=== PATIENT | male | born 1965 | race Caucasian/White ===

== ENCOUNTER 2022-10-23 20:09 | Inpatient (IN) | payer BC, SELFPAY ==
[2022-10-23] MEDS ORDERED: NA CHLORIDE 0.9% 1,000 ML ONE (20:46)
[2022-10-23] MEDS ORDERED: ACETAMINOPHEN 500 MG TAB ONE (20:46)
[2022-10-23] MEDS ORDERED: FAMOTIDINE 20 MG/2 ML VIAL IV ONE (20:46)
[2022-10-23 21:12] LABS: Absolute Lymphocytes (CBC) 0.9 K/uL (0.7-4.9); Hematocrit 41.3 % (39.6-49.0); Lymphocytes % 3.8 % (15.3-44.8); MCV 86.7 fL (80-100); MPV 10.2 fL (7.6-11.3); RBC Red Blood Cell Count 4.77 M/uL (4.33-5.43)
[2022-10-23 21:15] LABS: Protime INR 1.17
--- NOTE | 2022-10-23 21:16 | RAD REPORT ---
EXAM DESCRIPTION: RAD - Chest Single View - 10/23/2022 9:11 pm CLINICAL HISTORY: ABDOMINAL DISTENTION Chest pain. COMPARISON: No comparisons FINDINGS: Portable technique limits examination quality. The lungs are mildly underinflated but grossly clear. The heart is normal in size. No displaced fract ures. IMPRESSION: No acute intrathoracic process suspected.
[2022-10-23 21:32] LABS: Albumin 2.9 g/dL (3.4-5.0); Bilirubin Direct 0.1 mg/dL (0-0.2); Bilirubin Total 0.4 mg/dL (0.2-1.0); Magnesium 2.1 mg/dL (1.8-2.4); Potassium 4.5 mmol/L (3.5-5.1); Troponin High Sensitivity 11.3 pg/mL (<58.9)
[2022-10-23 21:46] LABS: SARS-COV-2 RT PCR NEGATIVE (NEGATIVE)
[2022-10-23 22:02] LABS: Platelet Estimate ADEQ
[2022-10-23 22:03] LABS: Blood Morphology Comment NOT SEEN (NOT SEEN)
[2022-10-23] MEDS ORDERED: NA CHLORIDE 0.9% 100 ML IV ONE (22:12)
[2022-10-23] MEDS ORDERED: PIPERACIL/TAZO 3.375 GM VIAL IV ONE (22:12)
--- NOTE | 2022-10-23 22:14 | RAD REPORT ---
EXAM DESCRIPTION: CT - Chest Abdomen Pelvis W Cont - 10/23/2022 9:48 pm CLINICAL HISTORY: Chest and abdomen pain. abd pain COMPARISON: No comparisons TECHNIQUE: Approximately 100 mL nonionic IV contrast was administered to the patient. All CT scans are performed using dose optimization technique as appropriate and may include automated exposure control or mA/KV adjustment according to patient size. FINDINGS: The lungs are clear.No pleural or pericardial effusion.No intrathoracic adenopathy. The liver demonstrates mild fatty infiltration. Spleen, pancreas, adrenal glands and right kidney are within normal limits. Hypodensity is seen in the superolateral aspect of the left kidney. Left kidne y appears enlarged and edematous. Findings likely indicate pyelonephritis. There is no evidence of pe rinephric abscess. No bowel obstruction, free air, free fluid or abscess. Normal appendix. No pathologic lymphadenopath y in the abdomen or pelvis. No worrisome osseous finding. IMPRESSION: Left-sided pyelonephritis without abscess.
[2022-10-23] MEDS ORDERED: NA CHLORIDE 0.9% 50 ML IV ONE (22:46)
[2022-10-23] MEDS ORDERED: CEFTRIAXONE 2000 MG/VIAL ONE (22:46)
--- NOTE | 2022-10-23 22:55 | EDPHYS ---
Physician Documentation [facility] Name: Rai Mccarthy Age: 56 yrs Sex: Male : 1965 Arrival Date: 10/23/2022 Time: 20:17 Bed 5 Private MD: JAILENE Physician Amor Betancourt HPI: 10/23 21:56 This 56 yrs old Male presents to ER via Ambulatory with complaints of FEVER , nahid ABD PAIN X 5 DAYS. 21:56 The patient presents with abdominal pain in the upper abdomen, in the lower abdomen. nahid The symptoms do not radiate. Associated signs and symptoms: Pertinent positives: fever, nausea. 22:48 Onset: The symptoms/episode began/occurred 5 day(s) ago. The symptoms are described as nahid constant. Modifying factors: The symptoms are alleviated by nothing, the symptoms are aggravated by nothing. Historical: - Allergies: 20:31 No Known Allergies; ld1 - PMHx: 20:31 Diabetes mellitus; Hypertensive disorder; ld1 - PSHx: 20:31 None; ld1 - Immunization history:: Adult Immunizations up to date, Client reports receiving the 2nd dose of the Covid vaccine. - Social history:: Smoking status: Patient denies any tobacco usage or history of. Patient/guardian denies using alcohol. ROS: 22:50 Eyes: Negative for injury, pain, redness, and discharge, ENT: Negative for injury, nahid pain, and discharge, Neck: Negative for injury, pain, and swelling, Cardiovascular: Negative for chest pain, palpitations, and edema, Respiratory: Negative for shortness of breath, cough, wheezing, and pleuritic chest pain, : Negative for injury, bleeding, discharge, and swelling, MS/Extremity: Negative for injury and deformity, Skin: Negative for injury, rash, and discoloration, Neuro: Negative for headache, weakness, numbness, tingling, and seizure, Psych: Negative for depression, anxiety, suicide ideation, homicidal ideation, and hallucinations, Allergy/Immunology: Negative for hives, rash, and allergies, Endocrine: Negative for neck swelling, polydipsia, polyuria, polyphagia, and marked weight changes, Hematologic/Lymphatic: Negative for swollen nodes, abnormal bleeding, and unusual bruising. 22:50 Abdomen/GI: Positive for abdominal pain, abdominal cramps, of the anterior aspect of left lateral abdomen and posterior aspect of left lateral abdomen. Exam: 22:50 Constitutional: This is a well developed, well nourished patient who is awake, alert, nahid and in no acute distress. Head/Face: Normocephalic, atraumatic. Eyes: Pupils equal round and reactive to light, extra-ocular motions intact. Lids and lashes normal. Conjunctiva and sclera are non-icteric and not injected. Cornea within normal limits. Periorbital areas with no swelling, redness, or edema. ENT: Nares patent. No nasal discharge, no septal abnormalities noted. Tympanic membranes are normal and external auditory canals are clear. Oropharynx with no redness, swelling, or masses, exudates, or evidence of obstruction, uvula midline. Mucous membranes moist. Neck: Trachea midline, no thyromegaly or masses palpated, and no cervical lymphadenopathy. Supple, full range of motion without nuchal rigidity, or vertebral point tenderness. No Meningismus. Chest/axilla: Normal chest wall appearance and motion. Nontender with no deformity. No lesions are appreciated. Cardiovascular: Regular rate and rhythm with a normal S1 and S2. No gallops, murmurs, or rubs. Normal PMI, no JVD. No pulse deficits. Respiratory: Lungs have equal breath sounds bilaterally, clear to auscultation and percussion. No rales, rhonchi or wheezes noted. No increased work of breathing, no retractions or nasal flaring. Abdomen/GI: Soft, non-tender, with normal bowel sounds. No distension or tympany. No guarding or rebound. No evidence of tenderness throughout. Male : Normal genitalia with no discharge or lesions. Skin: Warm, dry with normal turgor. Normal color with no rashes, no lesions, and no evidence of cellulitis. MS/ Extremity: Pulses equal, no cyanosis. Neurovascular intact. Full, normal range of motion. Neuro: Awake and alert, GCS 15, oriented to person, place, time, and situation. Cranial nerves II-XII grossly intact. Motor strength 5/5 in all extremities. Sensory grossly intact. Cerebellar exam normal. Normal gait. Psych: Awake, alert, with orientation to person, place and time. Behavior, mood, and affect are within normal limits. 22:50 Back: pain, is absent, ROM is normal, normal spinal alignment noted, CVA tenderness, that is moderate, is noted on the left, vertebral tenderness, is not appreciated, muscle spasm, is not present. Vital Signs: 20:31 BP 122 / 77; Pulse 140; Resp 28; Temp 103.2(O); Pulse Ox 94% on R/A; Weight 139.25 kg; ld1 Height 6 ft. 3 in. (190.50 cm); Pain 8/10; 20:56 BP 146 / 73; Pulse 127; Resp 30 S; Pulse Ox 98% on R/A; aa9 21:13 Pulse 122; Resp 34 S; Pulse Ox 98% on R/A; aa9 21:24 Pulse 119; Resp 24; Temp 103(O); Pulse Ox 98% on R/A; aa9 22:21 Temp 100.3(O); aa9 10/24 00:42 BP 121 / 69; Pulse 100; Resp 26 S; Temp 98.7(O); Pulse Ox 94% on R/A; as6 10/23 20:31 Body Mass Index 38.37 (139.25 kg, 190.50 cm) ld1 MDM: 10/23 20:35 Patient medically screened. nahid 22:51 Differential diagnosis: diverticulitis, gastritis, non-specific abd pain, pancreatitis, nahid Prostatitis, Pyelonephritis, urinary tract infection. Data reviewed: vital signs, nurses notes, lab test result(s), EKG, radiologic studies, CT scan, plain films. Data interpreted: phototypesetting equipment monitor: rate is 119 beats/min, rhythm is regular, Pulse oximetry: on room air is 98 %. Test interpretation: by ED physician or midlevel provider: ECG, plain radiologic studies. Counseling: I had a detailed discussion with the patient and/or guardian regarding: the historical points, exam findings, and any diagnostic results supporting the discharge/admit diagnosis, lab results, radiology results, the need for further work-up and treatment in the hospital. 10/23 20:37 Order name: Basic Metabolic Panel; Complete Time: 22:01 nahid 10/23 20:37 Order name: CBC with Diff; Complete Time: 22:30 nahid 10/23 20:37 Order name: LFT's; Complete Time: 22: nahid 10/23 20:37 Order name: Magnesium; Complete Time: 22: nahid 10/23 20:37 Order name: NT PRO-BNP; Complete Time: 22:01 [facility] 10/23 20:37 Order name: PT-INR; Complete Time: 22:01 [facility] 10/23 20:37 Order name: Troponin HS; Complete Time: 22:01 [facility] 10/23 20:37 Order name: Lipase; Complete Time: 22:01 [facility] 10/23 20:37 Order name: Lactate w/ 2H reflex if indic.; Complete Time: 22: [facility] 10/23 20:37 Order name: Blood Culture Adult (2) [facility] 10/23 20:37 Order name: COVID-19/FLU A+B; Complete Time: 22:01 [facility] 10/23 20:37 Order name: Urine Culture [facility] 10/23 22:03 Order name: Manual Differential; Complete Time: 22:30 [facility] 10/23 23:04 Order name: Urine Dipstick-Ancillary; Complete Time: 23:04 [facility] 10/23 20:37 Order name: XRAY Chest (1 view); Complete Time: 22:01 [facility] 10/23 20:37 Order name: EKG; Complete Time: 20:38 [facility] 10/23 20:37 Order name: Cardiac monitoring; Complete Time: 20:53 [facility] 10/23 20:37 Order name: EKG - Nurse/Tech; Complete Time: 20:53 [facility] 10/23 20:40 Order name: CT Chest, Abdomen, Pelvis - W/Contrast; Complete Time: 22:30 [facility] 10/24 03:01 Order name: CBC with Automated Diff [facility] 10/24 03:22 Order name: Hemoglobin A1c [facility] 10/24 03:40 Order name: Comprehensive Metabolic Panel [facility] 10/24 08:40 Order name: Glucose, Ancillary Testing [facility] 10/24 11:46 Order name: Glucose, Ancillary Testing [facility] 10/23 20:37 Order name: IV Saline Lock; Complete Time: 21:10 [facility] 10/23 20:37 Order name: Labs collected and sent; Complete Time: 21:09 [facility] 10/23 20:37 Order name: O2 Per Protocol; Complete Time: 20:53 [facility] 10/23 20:37 Order name: O2 Sat Monitoring; Complete Time: 20:53 [facility] 10/23 20:37 Order name: Urine Dipstick-Ancillary (obtain specimen); Complete Time: 22:53 [facility] 10/23 20:40 Order name: IV Saline Lock - Large Bore; Complete Time: 21:09 nahid Administered Medications: 20:45 Drug: Tylenol 1000 mg Route: PO; aa9 21:57 Follow up: Response: No adverse reaction aa9 21:09 Drug: NS 0.9% 1000 ml Route: IV; Rate: 1 bolus; Site: left antecubital; aa9 21:09 Drug: Pepcid (famotidine) 20 mg Route: IVP; Site: left antecubital; aa9 21:19 Follow up: Response: No adverse reaction aa9 22:21 Drug: Zosyn (piperacillin-tazobactam) 3.375 grams Route: IVPB; Infused Over: 60 mins; aa9 Site: right antecubital; 22:53 Drug: Rocephin (cefTRIAXone) 2 grams Route: IV; Rate: per protocol; Site: right as6 antecubital; 10/24 00:42 Drug: Melatonin 5 mg Route: PO; as6 Disposition Summary: 10/23/22 22:54 Hospitalization Ordered Hospitalization Status: Inpatient Admission nahid Provider: Luigi Ha cha Condition: Fair nahid Problem: new nahid Symptoms: have improved nahid Bed/Room Type: Standard nahid Location: Telemetry/MedSurg (Inpatient)(10/24/22 11:47) iw Room Assignment: 216(10/24/22 11:47) iw Diagnosis - Pyelonephritis acute nahid - Fever, unspecified nahid - Elevated white blood cell count nahid - Type 2 diabetes mellitus with hyperglycemia nahid - Obesity, unspecified nahid Forms: - Medication Reconciliation Form nahid - SBAR form nahid Signatures: Dispatcher [employer] EDAmor Caraballo MD MD cha Williams, Irene RN RN iw Ko Cameron FNP-C DIRECTOR OF ELEMENTARY EDUCATION-Cole1 Jessa Garcia RN RN cg Dibbern, Lauren, RN RN ld1 Robin Reza RN RN as6 Diamond Phillip RN RN aa9 Corrections: (The following items were deleted from the chart) 00:12 10/23 22:54 Telemetry/MedSurg (Inpatient) nahid cg 10/24 00:12 10/23 22:54 nahid cg 10/24 11:47 00:12 [facility] ER HOLD iw 11:47 00:12 ERHOLD- iw
--- NOTE | 2022-10-23 22:55 | ER ---
Nurse's Notes [facility] Name: Rai Mccarthy Age: 56 yrs Sex: Male : 1965 Arrival Date: 10/23/2022 Time: 20:17 Bed 5 Private MD: Diagnosis: Pyelonephritis acute;Fever, unspecified;Elevated white blood cell count;Type 2 diabetes mellitus with hyperglycemia;Obesity, unspecified Presentation: 10/23 20:31 Chief complaint: Patient states: ABD pain, headache, fever, WEI leg pain. Pt on ld1 doxycycline for cystitis. Reporting hallucinations. Coronavirus screen: At this time, the client does not indicate any symptoms associated with coronavirus-19. Ebola Screen: No symptoms or risks identified at this time. Initial Sepsis Screen: Does the patient meet any 2 criteria? RR > 20 per min. Temp <36.0*C (96.8*F)) or > 38.3*C (100.9*F). Altered Mental Status. Does the patient have a suspected source of infection? No. Patient's initial sepsis screen is negative. Risk Assessment: Do you want to hurt yourself or someone else? Patient reports no desire to harm self or others. Onset of symptoms was October 23, 2022 at 20:33. 20:31 Method Of Arrival: Ambulatory ld1 20:31 Acuity: JACOB 2 ld1 Triage Assessment: 20:31 General: Appears in no apparent distress. uncomfortable, Behavior is calm, cooperative, ld1 appropriate for age. Pain: Complains of pain in abdomen Pain does not radiate. Pain currently is 8 out of 10 on a pain scale. Quality of pain is described as sharp, shooting. EENT: No signs and/or symptoms were reported regarding the EENT system. Neuro: Level of Consciousness is awake, alert, obeys commands, Oriented to person, place, time, situation, Appropriate for age. Cardiovascular: Capillary refill < 3 seconds Patient's skin is warm and dry. Rhythm is sinus tachycardia. Respiratory: Airway is patent Respiratory effort is even, unlabored. GI: Abdomen is round non-distended. : No signs and/or symptoms were reported regarding the genitourinary system. Derm: Skin temperature is hot. Musculoskeletal: No signs and/or symptoms reported regarding the musculoskeletal system. Historical: - Allergies: 20:31 No Known Allergies; ld1 - PMHx: 20:31 Diabetes mellitus; Hypertensive disorder; ld1 - PSHx: 20:31 None; ld1 - Immunization history:: Adult Immunizations up to date, Client reports receiving the 2nd dose of the Covid vaccine. - Social history:: Smoking status: Patient denies any tobacco usage or history of. Patient/guardian denies using alcohol. Screenin:56 Abuse screen: Denies threats or abuse. Denies injuries from another. Nutritional aa9 screening: No deficits noted. Tuberculosis screening: No symptoms or risk factors identified. Fall Risk None identified. Assessment: 21:10 General: Appears uncomfortable, obese, Behavior is cooperative, anxious, crying. aa9 General: sister at bedside reports pt was hallucinating just before arrival. . Pain: Complains of pain in headache, LLQ abdmonima pain Pain currently is 7 out of 10 on a pain scale. Noted to be crying, moaning. Neuro: Level of Consciousness is awake, alert, obeys commands, Oriented to person, place, time, situation. Cardiovascular: Patient's skin is warm and dry. Respiratory: Airway is patent Respiratory effort is even, unlabored. GI: Patient currently denies diarrhea, nausea. : No signs and/or symptoms were reported regarding the genitourinary system. EENT: No signs and/or symptoms were reported regarding the EENT system. Derm: Skin is intact, is healthy with good turgor, Skin is normal, Skin temperature is warm. 22:28 Reassessment: Patient appears in no apparent distress at this time. Patient is alert, aa9 oriented x 3, equal unlabored respirations, skin warm/dry/pink. Neuro: Level of Consciousness is awake, alert, obeys commands, Oriented to person, place, time, situation. Respiratory: Airway is patent Respiratory effort is even, unlabored. Vital Signs: 20:31 BP 122 / 77; Pulse 140; Resp 28; Temp 103.2(O); Pulse Ox 94% on R/A; Weight 139.25 kg; ld1 Height 6 ft. 3 in. (190.50 cm); Pain 8/10; 20:56 BP 146 / 73; Pulse 127; Resp 30 S; Pulse Ox 98% on R/A; aa9 21:13 Pulse 122; Resp 34 S; Pulse Ox 98% on R/A; aa9 21:24 Pulse 119; Resp 24; Temp 103(O); Pulse Ox 98% on R/A; aa9 22:21 Temp 100.3(O); aa9 10/24 00:42 BP 121 / 69; Pulse 100; Resp 26 S; Temp 98.7(O); Pulse Ox 94% on R/A; as6 10/23 20:31 Body Mass Index 38.37 (139.25 kg, 190.50 cm) ld1 ED Course: 10/23 20:17 Patient arrived in ED. ja2 20:31 Arm band placed on right wrist. ld1 20:33 Triage completed. ld1 20:35 Amor Betancourt MD is Attending Physician. nahid 20:40 Diamond Phillip, RN is Primary Nurse. aa9 20:56 Placed in gown. Bed in low position. Call light in reach. Side rails up X2. Client aa9 placed on continuous cardiac and pulse oximetry monitoring. NIBP monitoring applied. 21:00 Inserted saline lock: 20 gauge in left antecubital area, using aseptic technique. Blood aa9 collected. 21:09 COVID-19/FLU A+B Sent. aa9 21:09 Blood Culture Adult (2) Sent. aa9 21:09 Lactate w/ 2H reflex if indic. Sent. aa9 21:09 Lipase Sent. aa9 21:09 Troponin HS Sent. aa9 21:09 PT-INR Sent. aa9 21:09 NT PRO-BNP Sent. aa9 21:09 Magnesium Sent. aa9 21:09 LFT's Sent. aa9 21:09 CBC with Diff Sent. aa9 21:09 Basic Metabolic Panel Sent. aa9 21:13 XRAY Chest (1 view) In Process Unspecified. EDMS 21:14 Notified ED physician of a critical lab result(s). WBCs of 24.7 Dr Betancourt notified. bb 21:50 CT Chest, Abdomen, Pelvis - W/Contrast In Process Unspecified. EDMS 22:52 Luigi Ha is Hospitalizing Provider. [facility] 10/24 00:59 No provider procedures requiring assistance completed. Patient admitted, IV remains in as6 place. Administered Medications: 10/23 20:45 Drug: Tylenol 1000 mg Route: PO; aa9 21:57 Follow up: Response: No adverse reaction aa9 21:09 Drug: NS 0.9% 1000 ml Route: IV; Rate: 1 bolus; Site: left antecubital; aa9 21:09 Drug: Pepcid (famotidine) 20 mg Route: IVP; Site: left antecubital; aa9 21:19 Follow up: Response: No adverse reaction aa9 22:21 Drug: Zosyn (piperacillin-tazobactam) 3.375 grams Route: IVPB; Infused Over: 60 mins; aa9 Site: right antecubital; 22:53 Drug: Rocephin (cefTRIAXone) 2 grams Route: IV; Rate: per protocol; Site: right as6 antecubital; 10/24 00:42 Drug: Melatonin 5 mg Route: PO; as6 Medication: 10/23 21:13 VIS not applicable for this client. aa9 Outcome: 22:54 Decision to Hospitalize by Provider. [facility] 10/24 00:59 Admitted to ER Hold. Please see [facility] for further documentation. as6 Condition: stable Instructed on the need for admit. 12:58 Patient left the ED. aa5 Signatures: Dispatcher [employer] EDMS Amor Betancourt MD MD cha Ballard, Brenda RN RN Anna Hernandez RN RN aa5 Stephanie Butler RN RN mason1 Alena Acosta Ashby, RN RN as6 Diamond Phillip RN RN aa9 Corrections: (The following items were deleted from the chart) 10/23 20:33 20:31 Acuity: JACOB 3 ld1 ld1 22:47 22:39 BP 108 / 78; aa9 aa9
[2022-10-23 23:04] LABS: Urine Blood 2+ (Negative); Urine Glucose 2+ (Negative); Urine Protein 3+ (Negative); Urine pH 5.5 (5.0-7.0)
[2022-10-23] MEDS ORDERED: MELATONIN 5 MG TABLET PO ONE (23:41)
[2022-10-24] MEDS ORDERED: ONDANSETRON 4 MG/2 ML VIAL IV PRN (00:22)
[2022-10-24] MEDS ORDERED: MELATONIN 5 MG TABLET PO PRN (00:22)
[2022-10-24] MEDS ORDERED: Ringers Lactate 1,000 ML IV ONE ×2 (00:31→08:52)
--- NOTE | 2022-10-24 00:35 | P.HP ---
Certification for Inpatient Patient admitted to: Inpatient With expected LOS: >2 Midnights Patient will require the following post-hospital care: None Practitioner: I am a practitioner with admitting privileges, knowledge of patient current condition, hospital course, and medical plan of care. Services: Services provided to patient in accordance with Admission requirements found in Title 42 Section 412.3 of the Code of Federal Regulations Patient History Date of Service: 10/24/22 Reason for admission: Pyelonephritis History of Present Illness: 56-year-old male with history of [id number] diabetes, hypertension presents the emergency department for fever, chills, leukocytosis. His symptoms started on Saturday, he was seen in the emergency department and [facility] on Saturday and prescribed doxycycline for UTI, his symptoms had not improved. He was seen here in the emergency department his labs were significant for leukocytosis with white blood cell count 24.7 sodium 130 glucose 254 lactic acid 1.[address] chest abdomen pelvis with IV contrast shows left-sided pyelonephritis without abscess or obstruction. Patient was given Rocephin in ED Ms. criteria for sepsis without severe sepsis or septic shock. Will admit for further valuation/management of pyelonephritis. Allergies No Known Allergies Allergy (Unverified 10/24/22 00:22) - Past Medical/Surgical History -: Diabetes mellitus type 2 -: Hypertension -: Left shoulder -: Right knee scope Psychosocial/ Personal History: Lives at home with his , is a teacher. - Family History Family History: Reviewed- Non-Contributory - Social History Smoking Status: Never smoker Alcohol use: No CD- Drugs: No Caffeine use: Yes Place of Residence: Home Review of Systems 10-point ROS is otherwise unremarkable General: Fever, Chills, Sweats, Weakness, Malaise Gastrointestinal: Nausea, Abdominal Pain Genitourinary: Dysuria, Frequency Physical Examination - Physical Exam General: Alert, In no apparent distress, Oriented x3 HEENT: Atraumatic, PERRLA, Mucous membr. moist/pink, EOMI, Sclerae nonicteric Neck: Supple, 2+ carotid pulse no bruit, No LAD, Without JVD or thyroid abnormality Respiratory: Clear to auscultation bilaterally, Normal air movement Cardiovascular: Regular rate/rhythm, Normal S1 S2 Gastrointestinal: Normal bowel sounds, No tenderness Musculoskeletal: No tenderness Integumentary: No rashes Neurological: Normal gait, Normal speech, Normal strength at 5/5 x4 extr, Normal tone, Normal affect Lymphatics: No axilla or inguinal lymphadenopathy - Studies Laboratory Data (last 24 hrs) 10/23/22 21:00: PT 12.9 H, INR 1.17 10/23/22 21:00: WBC 24.70 H*, Hgb 13.7, Hct 41.3, Plt Count 243 10/23/22 21:00: Sodium 130 L, Potassium 4.5, BUN 17, Creatinine 1.16, Glucose 254 H, Magnesium 2.1, Total Bilirubin 0.4, AST 17, ALT 30, Alkaline Phosphatase 113, Lipase 73 Assessment and Plan - Plan Assessment: Sepsis secondary to left-sided pyelonephritis Diabetes mellitus type [id number] with hyperglycemia Hypertension Plan: Sepsis secondary to left-sided pyelonephritis: Blood and urine cultures obtained, continue IV Rocephin. Await culture results. Diabetes mellitus type [id number] with hyperglycemia: A1c in the morning, sliding scale insulin. Hypertension: Hold oral antihypertensive agents given sepsis. Restart when appropriate. DVT PPX: Lovenox Code status: Full Discharge Plan: Home Plan to discharge in: 72 Hours - Advance Directives Does patient have a Living Will: No Does patient have a Durable POA for Healthcare: No - Code Status/Comfort Care Code Status Assessed: Yes (Full code) Critical Care: No Time Spent Managing Pts Care (In Minutes): 70
[2022-10-24] MEDS: Ringers Lactate 1,000 ML IV SCH ×3 (00:52→15:34)
[2022-10-24 01:01] VITALS: BMI 38.3
[2022-10-24 02:49] LABS: Absolute Lymphocytes (CBC) 1.7 K/uL (0.7-4.9); Hematocrit 35.4 % (39.6-49.0); Lymphocytes % 7.7 % (15.3-44.8); MCV 86.3 fL (80-100); RBC Red Blood Cell Count 4.11 M/uL (4.33-5.43)
[2022-10-24 03:11] LABS: Albumin 2.4 g/dL (3.4-5.0); Bilirubin Total 0.3 mg/dL (0.2-1.0); Protein, Total 6.7 g/dL (6.4-8.2)
[2022-10-24] MEDS ORDERED: MORPHINE 2 MG/ML SYR ONE (04:43)
[2022-10-24] MEDS: MORPHINE 2 MG/ML SYR IV PRN ×4 (04:50→22:21)
[2022-10-24] MEDS ORDERED: INSULIN -REGULAR HUMAN 50 UNIT/0.5 ML ML ONE ×2 (08:33→11:42)
[2022-10-24] MEDS ORDERED: ENOXAPARIN 40 MG/0.4 ML SQ ONE (08:34)
[2022-10-24] MEDS ORDERED: NA CHLORIDE 0.9% 100 ML IV ONE (08:34)
[2022-10-24] MEDS ORDERED: CEFTRIAXONE 2000 MG/VIAL ONE (08:34)
[2022-10-24] MEDS: INSULIN -REGULAR HUMAN 50 UNIT/0.5 ML ML SQ SCH ×4 (08:40→20:56)
[2022-10-24] MEDS: ENOXAPARIN 40 MG/0.4 ML SQ SCH (08:42)
[2022-10-24] MEDS ORDERED: CEFTRIAXONE 2,000 MG in NA CHLORIDE 0.9% 100 ML IV SCH (09:00)
[2022-10-24] MEDS: ACETAMINOPHEN 325 MG TABLET PO PRN ×2 (09:49→22:24)
--- NOTE | 2022-10-24 13:55 | P.PN ---
Subjective Date of Service: 10/24/22 Chief Complaint: Pyelonephritis Patient having persistent fever. He denies dysuria. Physical Examination - Vital Signs Temperature: 96.7 F Blood Pressure: 156/76 Pulse: 83 Respirations: 14 Pulse Ox (%): 99 - Studies Laboratory Data (last 24 hrs) 10/23/22 21:00: PT 12.9 H, INR 1.17 10/23/22 21:00: WBC 24.70 H*, Hgb 13.7, Hct 41.3, Plt Count 243 10/23/22 21:00: Sodium 130 L, Potassium 4.5, BUN 17, Creatinine 1.16, Glucose 254 H, Magnesium 2.1, Total Bilirubin 0.4, AST 17, ALT 30, Alkaline Phosphatase 113, Lipase 73 Microbiology Data (last 24 hrs): 10/23/22 21:41 Blood - Blood Blood Culture Gram Stain - Final Assessment And Plan - Current Problems (Diagnosis) (1) Acute pyelonephritis Current Visit: Yes Status: Acute (2) DM type 2 (diabetes mellitus, type 2) Current Visit: Yes Status: Acute (3) Hypertension Current Visit: Yes Status: Acute - Plan Physical Exam General: Alert, In no apparent distress, Oriented x3 Neck: Supple, no elevated JVD. Respiratory: Clear to auscultation bilaterally, Normal air movement Cardiovascular: Regular rate/rhythm, Normal S1 S2 Gastrointestinal: Normal bowel sounds, No tenderness Musculoskeletal: No tenderness Integumentary: No rashes Neurological: No focal motor deficits. Plan: Infectious disease consulted. Antibiotics changed from IV Rocephin to IV Zosyn. Urine culture and blood cultures are pending. Insulin sliding scale for glucose management. Resume home dose glimepiride. Fingerstick glucose monitoring.
[2022-10-24] MEDS ORDERED: HOME MED 1 EA UNK (Glimepiride [Glimepiride] 4 MG Tablet) PO SCH (13:59)
[2022-10-24] MEDS: SERTRALINE HCL 50 MG TAB PO SCH ×2 (14:27→20:14)
[2022-10-24] MEDS: FENOFIBRATE 48 MG TAB PO SCH (15:34)
--- NOTE | 2022-10-24 16:25 | EKG ---
Test Date: 2022-10-23 Test Time: 20:50:06 Planograph Operator: MEASUREMENT RESULTS: Intervals: Rate: 127 [place]: 168 QRSD: 78 QT: 276 QTc: 401 [place]: P: 68 WI: 168 QRS: -20 T: 53 INTERPRETIVE STATEMENTS: Sinus tachycardia Minimal voltage criteria for LVH, may be normal variant Borderline ECG No previous ECG available for comparison Electronically Signed On 10-24-22 16:22:59 REGISTERED NURSING PROFESSOR by Robert Cervantes
--- NOTE | 2022-10-24 17:06 | CON ---
History Of Present Illness: A 56-year-old male was seen for pyelonephritis. Patient has significant past medical history of non-insulin diabetes mellitus, currently on metformin and glyburide, hyperte nsion, came to the emergency room with fever, chills, sweats and leukocytosis. He was seen at [facility] and was given doxycycline for urinary tract infection, which did not improve. The patient denies any headache, chest pain, abdominal pain, constipation, or diarrhea. A CT abdomen shows patie nt has left-sided pyelonephritis without abscess or obstruction. Past Medical History: Diabetes mellitus, hypertension, left shoulder surgery, right knee surgery. Social History: Nonsmoker. Occasional drinker. Family History: Noncontributory. Medications: Rocephin and 1 dose of Zosyn. See MAR for other medications. Allergies: NO KNOWN DRUG ALLERGIES. Review of Systems: A 10-point review was performed. Physical Examination: General: This is a 56-year-old male, lying in the emergency room, T-max of 102, pulse 110, respirati ons 24, blood pressure 147/52. HEENT: Unremarkable. Neck: Supple. Lungs: Basal crackles. Heart: S1, S2. Regular. Abdomen: Soft. Bowel sounds present. Extremity: No edema. Laboratory Data: Shows WBC 46385, hemoglobin 11.8, platelets are 220. Chemistry shows BUN of 17, cr eatinine of 1.1, glucose 310. Albumin level is 2.4. Micro data: Blood cultures and urine cultures are pending. Chest x-ray done on 10/23, shows no intrathoracic process. CT abdomen and pelvis was d one on 10/23 shows left-sided pyelonephritis without abscess. Assessment And Plan: Left-sided pyelonephritis. Patient is currently on Rocephin with leukocytosis and T-max of 102 and outpatient doxycycline treatment failure. Pending culture results. We will rec ommend to switch patient to Zosyn. Discontinue Rocephin. Total course of antibiotic 2 weeks. Consi symone evaluation by urologist once patient is stable. Leukocytosis secondary to pyelonephritis. Anemi a of chronic disease, moderate protein-calorie malnourishment. Continue IV hydration. We will follo w the patient closely. NF/MODL Voice ID: [id number] Report ID: [id number]
[2022-10-24] MEDS: PIPER TAZO 4.5 GM in NA CHLORIDE 0.9% 100 ML IV SCH (17:35)
[2022-10-25] MEDS: PIPER TAZO 4.5 GM in NA CHLORIDE 0.9% 100 ML IV SCH ×3 (00:51→16:26)
[2022-10-25] MEDS: Ringers Lactate 1,000 ML IV SCH ×3 (00:51→19:59)
[2022-10-25 04:07] LABS: Absolute Lymphocytes (CBC) 1.6 K/uL (0.7-4.9); Hematocrit 36.7 % (39.6-49.0); Lymphocytes % 9.2 % (15.3-44.8); MCV 86.9 fL (80-100); MPV 10.6 fL (7.6-11.3); RBC Red Blood Cell Count 4.22 M/uL (4.33-5.43)
[2022-10-25 04:43] LABS: Albumin 2.2 g/dL (3.4-5.0); Bilirubin Total 0.3 mg/dL (0.2-1.0); Protein, Total 6.5 g/dL (6.4-8.2)
[2022-10-25] MEDS: MORPHINE 2 MG/ML SYR IV PRN ×2 (06:48→20:12)
[2022-10-25] MEDS: FENOFIBRATE 48 MG TAB PO SCH (09:15)
[2022-10-25] MEDS: GLIPIZIDE S.A. 5 MG TAB PO SCH (09:15)
[2022-10-25] MEDS: SERTRALINE HCL 50 MG TAB PO SCH ×3 (09:16→20:13)
[2022-10-25] MEDS: INSULIN -REGULAR HUMAN 50 UNIT/0.5 ML ML SQ SCH ×4 (09:16→20:13)
[2022-10-25] MEDS: ENOXAPARIN 40 MG/0.4 ML SQ SCH (09:16)
--- NOTE | 2022-10-25 12:51 | P.PN ---
Subjective Date of Service: 10/25/22 Chief Complaint: Pyelonephritis Patient experiencing intermittent fever. Last fever episode was last night. Physical Examination - Vital Signs Temperature: 98.6 F Blood Pressure: 131/64 Pulse: 86 Respirations: 18 Pulse Ox (%): 96 - Studies Microbiology Data (last 24 hrs): 10/23/22 21:41 Blood - Blood Blood Culture Gram Stain - Final 10/23/22 21:00 Blood - Blood Blood Culture Gram Stain - Final Assessment And Plan - Current Problems (Diagnosis) (1) Acute pyelonephritis Current Visit: Yes Status: Acute (2) DM type 2 (diabetes mellitus, type 2) Current Visit: Yes Status: Acute (3) Hypertension Current Visit: Yes Status: Acute - Plan Physical Exam General: Alert, In no apparent distress, Oriented x3 Neck: Supple, no elevated JVD. Respiratory: Clear to auscultation bilaterally, Normal air movement Cardiovascular: Regular rate/rhythm, Normal S1 S2 Gastrointestinal: Normal bowel sounds, No tenderness Musculoskeletal: No tenderness Integumentary: No rashes Neurological: No focal motor deficits. Plan: Infectious disease input appreciated Leukocytosis is improving with antibiotics. Continue IV Zosyn Urine culture and blood cultures growing gram-negative rods. Repeat blood culture Insulin sliding scale for glucose management. Continue home dose glimepiride. Fingerstick glucose monitoring.
[2022-10-26] MEDS: PIPER TAZO 4.5 GM in NA CHLORIDE 0.9% 100 ML IV SCH ×3 (01:18→16:30)
[2022-10-26] MEDS: MORPHINE 2 MG/ML SYR IV PRN ×2 (01:25→22:54)
[2022-10-26 03:56] LABS: Absolute Lymphocytes (CBC) 1.4 K/uL (0.7-4.9); Hematocrit 34.5 % (39.6-49.0); Lymphocytes % 12.1 % (15.3-44.8); MCV 86.2 fL (80-100); RBC Red Blood Cell Count 4.01 M/uL (4.33-5.43)
[2022-10-26 04:14] LABS: Albumin 2.2 g/dL (3.4-5.0); Bilirubin Total 0.5 mg/dL (0.2-1.0); Potassium 3.6 mmol/L (3.5-5.1); Protein, Total 6.4 g/dL (6.4-8.2)
[2022-10-26] MEDS: Ringers Lactate 1,000 ML IV SCH ×3 (04:30→17:00)
[2022-10-26] MEDS: GLIPIZIDE S.A. 5 MG TAB PO SCH (08:58)
[2022-10-26] MEDS: ENOXAPARIN 40 MG/0.4 ML SQ SCH (08:58)
[2022-10-26] MEDS: FENOFIBRATE 48 MG TAB PO SCH (08:58)
[2022-10-26] MEDS: INSULIN -REGULAR HUMAN 50 UNIT/0.5 ML ML SQ SCH ×4 (08:59→21:08)
[2022-10-26] MEDS: SERTRALINE HCL 50 MG TAB PO SCH ×3 (09:01→21:09)
--- NOTE | 2022-10-26 15:57 | P.PN ---
Subjective Date of Service: 10/26/22 Chief Complaint: Pyelonephritis No fever since yesterday. Patient is complaining of intermittent cough and nasal congestion. Physical Examination - Vital Signs Temperature: 97.8 F Blood Pressure: 157/72 Pulse: 83 Respirations: 18 Pulse Ox (%): 97 - Studies Microbiology Data (last 24 hrs): 10/23/22 23:00 Catheterized Urine [place] Pool Count - Final >100,000 CFU/ML. 10/23/22 23:00 Catheterized Urine - Final Escherichia Coli Gram Neg [place] 10/23/22 21:00 Blood - Blood Blood Culture Gram Stain - Final 10/23/22 21:41 Blood - Blood Blood Culture Gram Stain - Final Assessment And Plan - Current Problems (Diagnosis) (1) Acute pyelonephritis Current Visit: Yes Status: Acute (2) DM type 2 (diabetes mellitus, type 2) Current Visit: Yes Status: Acute (3) Hypertension Current Visit: Yes Status: Acute - Plan Physical Exam General: Alert, In no apparent distress, Oriented x3 Respiratory: Clear to auscultation bilaterally, Normal air movement Cardiovascular: Regular rate/rhythm, Normal S1 S2 Gastrointestinal: Normal bowel sounds, No tenderness Musculoskeletal: No tenderness Integumentary: No rashes Neurological: No focal motor deficits. Plan: Infectious disease is following. Leukocytosis almost resolved. Urine culture: E. coli sensitive to several antibiotics and another gram- negative doron(identification is pending). Initial blood culture: E. coli. Repeat blood culture shows no growth. Continue IV Zosyn Follow urine culture. Insulin sliding scale for glucose management. Continue home dose glimepiride. Fingerstick glucose monitoring. Flonase for nasal congestion.
--- NOTE | 2022-10-26 17:12 | PN ---
Subjective: Patient sitting in bed. Denies any headache, nausea, vomiting, chest pain, abdominal pa in, constipation. No problems with the antibiotic. Objective: Vital Signs: Temperature 97, pulse 90, respirations 17, blood pressure 166/77. Lungs: Clear to auscultation. Heart: S1, S2. Regular. Abdomen: Soft, nontender. Bowel sounds present. Extremities: No edema. Laboratory Data: Shows WBC 11.9, hemoglobin 11.5, platelets are 248. Chemistry shows BUN of 8, crea tinine of 0.8. Albumin level is 2.2. Glucose is 273. Micro data shows blood cultures and urine cul ture growing E coli and gram-negative rods which has to be identified sensitive to current treatment of Zosyn. Assessment And Plan: Bacteremia secondary to Escherichia coli and urinary tract infection secondary to Escherichia coli with pyelonephritis. Continue antibiotic treatment for 2 weeks. Once all the or ganisms are identified, we can switch patient to oral treatment. Continue IV hydration. Anemia of c hronic disease. Leukocytosis, improving. Moderate protein-calorie malnourishment. We will follow p atient as needed. NF/MODL Voice ID: [id number] Report ID: [id number]
[2022-10-26] MEDS: FLUTICASONE 50MCG NASAL SPRAY NAS SCH (21:08)
[2022-10-26] MEDS ORDERED: HYDROCODONE/CHLORPHEN 5 ML/OSYR PO PRN (22:56)
[2022-10-27] MEDS: PIPER TAZO 4.5 GM in NA CHLORIDE 0.9% 100 ML IV SCH ×3 (01:00→16:06)
[2022-10-27 03:51] LABS: Absolute Lymphocytes (CBC) 1.1 K/uL (0.7-4.9); Hematocrit 34.1 % (39.6-49.0); Lymphocytes % 10.9 % (15.3-44.8); MCV 85.2 fL (80-100); MPV 9.3 fL (7.6-11.3)
[2022-10-27 04:11] LABS: Albumin 2.3 g/dL (3.4-5.0); Bilirubin Total 0.3 mg/dL (0.2-1.0); Potassium 3.8 mmol/L (3.5-5.1); Protein, Total 6.8 g/dL (6.4-8.2)
[2022-10-27] MEDS: Ringers Lactate 1,000 ML IV SCH ×3 (06:34→16:06)
[2022-10-27] MEDS: FLUTICASONE 50MCG NASAL SPRAY NAS SCH ×2 (09:00→20:37)
[2022-10-27] MEDS: ENOXAPARIN 40 MG/0.4 ML SQ SCH (09:28)
[2022-10-27] MEDS: FENOFIBRATE 48 MG TAB PO SCH (09:28)
[2022-10-27] MEDS: SERTRALINE HCL 50 MG TAB PO SCH ×3 (09:28→20:38)
[2022-10-27] MEDS: GLIPIZIDE S.A. 5 MG TAB PO SCH (09:28)
[2022-10-27] MEDS: INSULIN -REGULAR HUMAN 50 UNIT/0.5 ML ML SQ SCH ×4 (09:28→21:08)
--- NOTE | 2022-10-27 18:32 | P.PN ---
Subjective Date of Service: 10/27/22 Chief Complaint: Pyelonephritis Patient is complaining of cough and nasal congestion No fever. He states his appetite is getting better. Physical Examination - Vital Signs Temperature: 98.0 F Blood Pressure: 175/81 Pulse: 88 Respirations: 18 Pulse Ox (%): 96 - Studies Microbiology Data (last 24 hrs): 10/23/22 21:00 Blood - Blood Blood Culture Gram Stain - Final Assessment And Plan - Current Problems (Diagnosis) (1) Acute pyelonephritis Current Visit: Yes Status: Acute (2) DM type 2 (diabetes mellitus, type 2) Current Visit: Yes Status: Acute (3) Hypertension Current Visit: Yes Status: Acute - Plan Physical Exam General: Alert, In no apparent distress, Oriented x3 Respiratory: Clear to auscultation bilaterally, Normal air movement Cardiovascular: Regular rate/rhythm, Normal S1 S2 Gastrointestinal: Normal bowel sounds, No tenderness Musculoskeletal: No tenderness Integumentary: No rashes Neurological: No focal motor deficits. Plan: Infectious disease is following. Leukocytosis resolved. Clinically improving. Urine culture: E. coli sensitive to several antibiotics and another gram- negative flex(identification is pending). Initial blood culture: E. coli. Repeat blood culture shows no growth. Continue IV Zosyn Follow urine culture. Insulin sliding scale for glucose management. Continue home dose glimepiride. Fingerstick glucose monitoring. Flonase for nasal congestion. Nasal swab for influenza.
[2022-10-27] MEDS: MORPHINE 2 MG/ML SYR IV PRN (21:12)
[2022-10-27 23:32] VITALS: O2SAT 92
[2022-10-28] MEDS: PIPER TAZO 4.5 GM in NA CHLORIDE 0.9% 100 ML IV SCH ×2 (00:58→08:39)
[2022-10-28] MEDS: Ringers Lactate 1,000 ML IV SCH ×2 (00:58→08:39)
[2022-10-28] MEDS: INSULIN -REGULAR HUMAN 50 UNIT/0.5 ML ML SQ SCH (07:30)
[2022-10-28 07:52] VITALS: BP 174/68; TEMP 97.5
[2022-10-28] MEDS: FLUTICASONE 50MCG NASAL SPRAY NAS SCH (08:39)
[2022-10-28] MEDS: SERTRALINE HCL 50 MG TAB PO SCH (08:39)
[2022-10-28] MEDS: GLIPIZIDE S.A. 5 MG TAB PO SCH (08:39)
[2022-10-28] MEDS: FENOFIBRATE 48 MG TAB PO SCH (08:40)
[2022-10-28] MEDS: ENOXAPARIN 40 MG/0.4 ML SQ SCH (08:40)
[2022-10-28] MEDS: MORPHINE 2 MG/ML SYR IV PRN (08:47)
--- NOTE | 2022-10-28 11:35 | P.DS ---
Admission Date: 10/24/22 Discharge Date: 10/28/22 Disposition: ROUTINE DISCHARGE Discharge Condition: FAIR Reason for Admission: Pyelonephritis - Problems (1) Acute pyelonephritis Current Visit: Yes Status: Acute (2) DM type 2 (diabetes mellitus, type 2) Current Visit: Yes Status: Acute (3) Hypertension Current Visit: Yes Status: Acute (4) Sepsis Current Visit: Yes Status: Acute (5) E coli bacteremia Current Visit: Yes Status: Acute (6) Influenza A Current Visit: Yes Status: Acute Brief History of Present Illness: 56-year-old male with history of iii-ktezojk-dfmqjwzyc diabetes, hypertension presented to the emergency department for fever, chills, leukocytosis. He was seen in the emergency department in [facility] on Saturday and prescribed doxycycline for UTI, his symptoms did not improved. He was seen here in the emergency department and his labs were significant for leukocytosis with white blood cell count 24.7 sodium 130 glucose 254 lactic acid 1.[address] chest abdomen pelvis with IV contrast shows left-sided pyelonephritis without abscess or obstruction. Patient was given Rocephin in ED. He met criteria for sepsis without severe sepsis or septic shock. Patient admitted for further management. Hospital Course: Patient admitted to the medical floor and treated for acute pyelonephritis with IV Rocephin, later switched to IV Zosyn by infectious disease-Dr. Hendrickson. Urine culture grew E. coli sensitive to multiple antibiotics. Blood culture also grew E. coli. Patient was treated with IV Zosyn for several days. Repeat blood culture yielded no growth. Patient clinically improved, he had intermittent fever which resolved, sepsis and leukocytosis also resolved. He developed upper respiratory infection, nasal swab is positive for influenza A. Overall patient has clinically improved and deemed stable for discharge. He is prescribed oral ciprofloxacin to continue treatment for 2 weeks. He is informed to follow-up with urology-Dr. Nolasco for further evaluation. Vital Signs/Physical Exam: Temp Pulse Resp BP Pulse Ox 97.5 F 82 18 174/68 H 95 10/28/22 07:52 10/28/22 07:52 10/28/22 08:47 10/28/22 07:52 10/28/22 08:47 General: Alert, In no apparent distress, Oriented x3 HEENT: Mucous membr. moist/pink Neck: JVD not distended Respiratory: Clear to auscultation bilaterally, Normal air movement Cardiovascular: No edema, Regular rate/rhythm, Normal S1 S2 Gastrointestinal: Soft and benign, Non-distended, No tenderness Musculoskeletal: No swelling Neurological: Normal strength at 5/5 x4 extr Laboratory Data at Discharge: WBC 9.90 K/uL (4.3-10.9) 10/27/22 03:37 Hgb 11.7 g/dL (13.6-17.9) L 10/27/22 03:37 Hct 34.1 % (39.6-49.0) L 10/27/22 03:37 Plt Count 271 K/uL (152-406) 10/27/22 03:37 PT 12.9 SECONDS (9.5-12.5) H 10/23/22 21:00 INR 1.17 10/23/22 21:00 Sodium 136 mmol/L (136-145) 10/27/22 03:37 Potassium 3.8 mmol/L (3.5-5.1) 10/27/22 03:37 BUN 7 mg/dL (7-18) 10/27/22 03:37 Creatinine 0.84 mg/dL (0.55-1.3) 10/27/22 03:37 Glucose 218 mg/dL (74-106) H 10/27/22 03:37 Magnesium 2.1 mg/dL (1.8-2.4) 10/23/22 21:00 Total Bilirubin 0.3 mg/dL (0.2-1.0) 10/27/22 03:37 AST 46 U/L (15-37) H 10/27/22 03:37 ALT 70 U/L (12-78) 10/27/22 03:37 Alkaline Phosphatase 65 U/L (45-117) 10/27/22 03:37 Lipase 73 U/L (73-393) 10/23/22 21:00 Home Medications: Candesartan Cilexetil 8 mg PO DAILY 10/24/22 Fenofibrate Nanocrystallized [Tricor] 48 mg PO DAILY 10/24/22 Glipizide [Glipizide ER] 5 mg PO BREAKFAST 10/24/22 Metformin HCl 1,000 mg PO BID 10/24/22 Sertraline [Zoloft*] 50 mg PO TID 10/24/22 Ciprofloxacin HCl [Cipro] 500 mg PO BID #28 tab 10/28/22 Dextromethorphan HBr/Chlor-Mal [Robitussin Cough-Cold Liquid] 10 ml PO QID PRN #1 bottle 10/28/22 Fenofibrate [Tricor*] 48 mg PO DAILY tab 10/28/22 New Medications: Ciprofloxacin HCl [Cipro] 500 mg PO BID #28 tab Dextromethorphan HBr/Chlor-Mal [Robitussin Cough-Cold Liquid] 10 ml PO QID PRN #1 bottle PRN Reason: Cough Diet: ADA Activity: Ad rosalio Followup: ZOFIA ARMIJO [Primary Care Provider] - 1-2 Weeks [place] Nolasco [ACTIVE - CAN ADMIT] - (within 2 to 4 weeks.) Time spent managing pt's care (in minutes): 37
== END 2022-10-28 11:55 | disposition home or self-care (01) | DRG 872 ==
LOC: ER 20:09 → ERHOLD 10-24 00:04 → 2ND 10-24 12:24
PROVIDERS: ADMIT Internal Medicine; ATTEND Internal Medicine
DX: A41.51 Sepsis due to Escherichia coli [E. coli] (principal); N10 Acute pyelonephritis; E44.0 Moderate protein-calorie malnutrition; E11.65 Type 2 diabetes mellitus with hyperglycemia; I10 Essential (primary) hypertension; D63.8 Anemia in other chronic diseases classified elsewhere; E66.9 Obesity, unspecified; J10.1 Influenza due to other identified influenza virus with other respiratory manifestations; D72.829 Elevated white blood cell count, unspecified; Z79.84 Long term (current) use of oral hypoglycemic drugs; Z68.38 Body mass index [BMI] 38.0-38.9, adult; Z79.899 Other long term (current) drug therapy; Z20.822 Contact with and (suspected) exposure to COVID-19
CPT/HCPCS: 0240U; 36415; 71045; 71260; 74177; 80048; 80053; 80076; 81003; 82947; 83036; 83605; 83690; 83735; 83880; 84484; 85025; 85610; 87040; 87077; 87086; 87088; 87186; 87205; 87804; 93005; 99285; J0696; J1650; J1815; J2270; J2543; J7030; J7120; Q9967

== ENCOUNTER 2023-05-22 07:10 | Day surgery (SDC) | payer BC ==
[2023-05-22] MEDS ORDERED: NA CHLORIDE 0.9% 1,000 ML ONE (07:35)
[2023-05-22 07:39] LABS: Absolute Lymphocytes (CBC) 3.5 K/uL (0.7-4.9); Hematocrit 45.2 % (39.6-49.0); Lymphocytes % 31.5 % (15.3-44.8); MCV 88.1 fL (80-100); RBC Red Blood Cell Count 5.13 M/uL (4.33-5.43)
[2023-05-22 07:52] LABS: Potassium 4.4 mEq/L (3.5-5.1)
--- NOTE | 2023-05-22 08:42 | RAD REPORT ---
EXAM DESCRIPTION: Elise Jensen (2 Views)05/22/2023 8:23 am CLINICAL HISTORY: Skin cancer. Preop for skin surgery COMPARISON: 2021 FINDINGS: The lungs appear clear of acute infiltrate. The heart is normal size IMPRESSION: No acute abnormalities displayed
[2023-05-22] MEDS ORDERED: propofoL 200 MG/20 ML VIAL IV ONE ×2 (08:49→08:52)
[2023-05-22] MEDS ORDERED: MIDAZOLAM HCL 2 MG/2 ML INJ ONE (08:49)
[2023-05-22] MEDS ORDERED: ONDANSETRON 4 MG/2 ML VIAL ONE (08:49)
[2023-05-22] MEDS ORDERED: FENTANYL CITR 100 MCG/2 ML ONE (08:49)
[2023-05-22] MEDS ORDERED: dexAMETHasone 4 MG/ML VIAL ONE (08:50)
[2023-05-22] MEDS ORDERED: LIDOCAINE 2% MPF 5 ML VIAL ONE (08:51)
[2023-05-22] MEDS: CEFAZOLIN SODIUM 1 GM/VIAL ONE ×2 (08:59→09:19)
--- NOTE | 2023-05-22 09:40 | P.BOP ---
Preoperative diagnosis: ulcerated chest wall skin mass Postoperative diagnosis: same, basal cell carcinoma Primary procedure: Wide excision of ulcerated chest wall basal cell carcinoma 3x3cm Estimated blood loss: <10cc Specimen: mass Findings: margins free of tumor per Dr Lorenz Anesthesia: General Complications: None Transferred to: Recovery Room Condition: Good
[2023-05-22 10:56] VITALS: BP 133/65; TEMP 96.9; O2SAT 95
--- NOTE | 2023-05-22 12:16 | DS ---
Date of Discharge: 05/22/2023 Diagnosis: Ulcerated chest wall basal cell carcinoma. Procedure: Wide excision of basal cell carcinoma. Disposition: Home. Activity: As tolerated. No heavy lifting. Plan: Follow up in my office in 1 week. Call for appointment at [phone]. Keep area dry for 48 fan r, then may shower and then apply triple antibiotics ointment and Band-Aid. We will see the patient in a week in our office. HOLLI Voice ID: [id number] Report ID: [id number]
--- NOTE | 2023-05-22 12:31 | OP ---
Date of Procedure: 05/22/2023 Surgeon: Bro Saldana MD Preoperative Diagnosis: Ulcerated chest wall skin mass. Postoperative Diagnoses: Ulcerated chest wall skin mass plus basal cell carcinoma. Procedure: Wide excision of ulcerated chest wall basal cell carcinoma about 3 x 3 cm. Estimated Blood Loss: Less than 10 cc. Specimen: Mass. Findings: Basal cell carcinoma and margin free of tumor per Dr. Lorenz. Anesthesia: General plus local. Indication: This is the case of a 57-year-old patient, who comes with a nonhealing wound over the ch est wall identified by primary healthcare and the nurse practitioner, Dr. Nuñez, identify these a reas of abnormalities, sent to us for excisional biopsy. We do agree with her. There are some aceves es in that region that looked suspicious for skin cancer, so we recommend a wide excision with frozen section with benefits, alternatives, and risks including, but not limited to infection, bleeding, da mage to adjacent structures, anesthesia complication, nonhealing wound, NH, and even . The adam ent also understands this may not relieve any symptoms. He might need more than one surgical interve ntion. If we find cancer in the area, we will recommend the patient to follow with the bead forming machine set up operator to look for any other areas that may be once again in the future developed into this. The area of c willrn was marked by me and the patient in the holding room. Procedure In Detail: The patient was brought to the operating room, placed in supine position. Anes thesia was done without complication. Right chest was prepped and draped in the usual sterile fashio n. A time-out was called. A wedge incision with at least 1-2 negative margins was done in that area about 5 x 5 cm for lesion that edges about 3 x 3 cm. The mass was marked for orientation and sent t o the pathologist for frozen section. It comes back as basal cell carcinoma, margins free of tumor. The way this was closed was approximated with 3-0 chromic in a subcutaneous fashion. Then, after th at, the skin was approximated with 3-0 nylon. Hemostasis and irrigation were obtained before closure . Local anesthetic was also applied. The patient tolerated the procedure well. The patient was sen t to recovery in stable condition. ZANE/AISHWARYA Voice ID: [id number] Report ID: [id number]
--- NOTE | 2023-05-22 18:08 | EKG ---
Test Date: 2023-05-22 Test Time: 07:36:08 Agriculture Technician: SHANA MEASUREMENT RESULTS: Intervals: Rate: 75 [place]V: 192 QRSD: 86 QT: 368 QTc: 410 [place]: P: 71 WV: 192 QRS: -25 T: 18 INTERPRETIVE STATEMENTS: Normal sinus rhythm Normal ECG Compared to ECG 10/23/2022 20:50:06 Sinus tachycardia no longer present Left ventricular hypertrophy no longer present Electronically Signed On 05-22-23 18:07:07 CDT by Ky Madsen
== END 2023-05-22 11:20 | disposition home or self-care (01) ==
LOC: OR 07:10
PROVIDERS: ATTEND Surgery
PROC: 0JB60ZZ Excision of Chest Subcutaneous Tissue and Fascia, Open Approach (ICD-10-PCS; principal; 2023-05-22 09:30)
DX: C44.519 Basal cell carcinoma of skin of other part of trunk (principal)
CPT/HCPCS: 93005; 85025; 80048; 36415; 82947; 88331; 88332; 88305; 71046; 11603; J2704 ×2; J1100; J2001; J2250; J3010; J2405; J7030; J0690